=== PATIENT | female | born 1970 | race Two or more races ===

== ENCOUNTER 2024-06-14 17:20 | Emergency (ER) | payer MEDICAID, SELFPAY ==
[2024-06-14 17:49] VITALS: BP 103/72; PULSE 72; RESP 18; TEMP 36.7; O2SAT 100; BMI 20.5
--- NOTE | 2024-06-14 18:35 | XR_ITS ---
Examination: CT maxillofacial, without intravenous contrast. 2-D sagittal reconstructions. 3-D reconstructions. Date and time of exam:June 14, 2024 1917 hrs. Indications: Left-sided facial pain year pain and headache today CTDI: vol (mGy):19.6 DLP: (mGycm):380 Technique: Multiple axial images of maxillofacial region, 3.0 mm slice thickness. 2-D sagittal and coronal reconstructions. 3-D reconstructions. Low dose protocols were performed. One or more of the following dose reduction techniques were used; automated exposure control, adjustment of the mA and/or KV according to patient size, use of iterative reconstruction technique. Findings: Optic globes exhibit symmetry Maxillary antra are clear Symmetrical oropharynx No significant cervical lymphadenopathy The larynx appears normal Thyroid lobes are not enlarged Negative for otitis media, negative for otitis externa No acute mastoiditis Impression: No soft tissue neck mass No pathologic cervical lymphadenopathy Negative for otitis media, negative for otitis externa, negative for mastoiditis.
--- NOTE | 2024-06-14 18:35 | XR_ITS ---
Examination: CT brain head without contrast. 2-D sagittal coronal reconstructions Date and time of exam:June 07 70,024 1917 hrs. Indications: Left-sided headache beginning 2 days ago Comparison: May 21, 2024 CTDI: vol (mGy):44.6 DLP: (mGycm):852 Technique: Multiple CT axial sections of the brain have been obtained, 5 mm slice thickness. Contrast has not been administered. 2-D sagittal, coronal reconstructions have been obtained Low dose protocols were performed. One or more of the following dose reduction techniques were used; automated exposure control, adjustment of the mA and/or KV according to patient size, use of iterative reconstruction technique. Findings: No significant ventricular enlargement. Intra-axial or extra-axial hemorrhage density is not seen. No mass effect or midline shift Basal cisterns are not remarkable. Fourth ventricle is midline. Cranial vault intact. Impression: Negative for acute hemorrhage, mass effect or midline shift
--- NOTE | 2024-06-14 18:43 | EDNOTE_ITS ---
ED Headache RME/HPI General Chief Complaint: Headache Stated Complaint: Headache and left ear pain X 2 days Time Seen by Provider: 06/14/24 17:29 Arrival date/time: 06/14/24 17:20 53F with no significant PMH presents to ED with 2 days of head pressure inside head that is primarily on the L side. Patient also feels like something is moving inside. Patient denies alcohol/psych/drug use. Patient was here several weeks ago with CT head saying sinusitis. Patient states this feels different. Limitations: no limitations Related Data Home Medications ?Medication ?Instructions ?Recorded ?Confirmed amitriptyline 50 mg tablet 50 mg PO QDAY 01/01/22 01/02/22 naproxen 500 mg tablet 500 mg PO BID PRN Pain 01/01/22 01/02/22 ondansetron 4 mg disintegrating 4 mg PO Q6H PRN Nausea And Vomiting 01/01/22 01/02/22 tablet sumatriptan succinate 100 mg tablet 100 mg PO Q2H PRN Migraine Headache 01/01/22 01/02/22 Previous Rx's ?Medication ?Instructions ?Recorded amoxicillin 500 mg-potassium 1 tab PO BID #14 tabs 05/21/24 clavulanate 125 mg tablet (Augmentin) fluticasone propionate 50 1 spray intranasal QDAY PRN 05/21/24 mcg/actuation nasal congestion #16 mL spray,suspension (Flonase Allergy Relief) Allergies Allergy/AdvReac Type Severity Reaction Status Date / Time codeine Allergy Mild Rash Verified 05/21/24 12:48 morphine Allergy Mild Rash Verified 05/21/24 12:48 Review of Systems Review of Systems Systems Reviewed: All systems reviewed, normal except as documented Constitutional Constitutional: Reports system reviewed and no additional complaints, except as documented, Reports as per HPI, Denies fever(s) and Reports headache(s) (pressure) ENT Ears, Nose, Mouth, and Throat: Denies disequilibrium and Reports headache(s) (pressure) Cardiovascular Cardiovascular: Reports system reviewed and no additional complaints, except as documented, Denies chest pain and Denies dyspnea Respiratory Respiratory: Reports system reviewed and no additional complaints, except as documented, Denies cough and Denies dyspnea Gastrointestinal Gastrointestinal: Reports system reviewed and no additional complaints, except as documented, Denies abdominal pain, Denies nausea and Denies vomiting Neurologic Neurologic: Reports system reviewed and no additional complaints, except as documented, Denies confusion, Denies disequilibrium and Reports headache(s) (pressure) Psychiatric Psychiatric: Denies confusion Past Medical History Past Medical History NEUROLOGIC: Positive Neurological Disorders (HEAD ACHE SEVERE); Negative Seizures CARDIAC: Negative Cardiac Disorders, Congestive Heart Failure, Edema, Cellulitis or Varicose Veins RESPIRATORY: Negative Chronic Obstructive Pulmonary Disease (COPD), Tuberculosis or Sleep Apnea GASTROINTESTINAL: Positive Gastrointestinal Disorders and Gall Bladder Disease (LAP); Negative Hepatitis GENITOURINARY: Negative Genitourinary Disorders or Renal Disease REPRODUCTIVE: Positive Previous Pregnancies (X5) MUSCULOSKELETAL: Negative Musculoskeletal Disorders ENDOCRINE: Negative Endocrine Disorders, Diabetes Mellitus Type 1 or Diabetes Mellitus Type 2 HEMATOLOGIC: Negative Blood Disorders PSYCHO/SOCIAL: Positive Depression (TAKES MED) and Anxiety (TAKES MED) OTHER HISTORY: Positive Chicken Pox; Negative Hospitalization, Autoimmune Disease, Shingles, Falls, Blood Transfusions, Blood Transfusion Reaction, Anesthesia Reactions, Chemotherapy, Radiation Therapy, MRSA, Measles, Mumps or Cancer Family History FAMILY HISTORY: Positive Family Psychiatric Problems (FATHER (DEPRESSION,ANXIETY)) and Family Cardiac Disorders (FATHER (AR)); Negative Family Respiratory Disorders, Family Gastrointestinal Problems, Family Cancer, Family Surgery or Family Anesthesia Reaction Surgical History SURGICAL: Positive Tubal Ligation; Negative Pacemaker Social History SMOKING STATUS: Never smoker ED Exam General Limitations: Present no limitations General appearance: Present alert and in no apparent distress Head Head exam: Present atraumatic Eye Eye exam: Present normal appearance, PERRL and EOMI ENT ENT exam: Present normal exam, normal oropharynx and mucous membranes moist Neck Neck exam: Present normal inspection, full ROM and trachea midline Chest Chest inspection: Present normal inspection and symmetric chest wall rise Respiratory Respiratory exam: Present normal lung sounds bilaterally Cardiovascular Cardiovascular exam: Present regular rate, normal rhythm and normal heart sounds Abdominal Exam Abdominal exam: Present soft and normal bowel sounds Extremities Exam Extremities exam: Present normal inspection and full ROM Back Exam Back exam: Present normal inspection and full ROM Neurological Exam Neurological exam: Present alert, oriented X3 and CN II-XII intact Psychiatric Psychiatric exam: Present normal affect and normal mood Skin Skin exam: Present warm, dry, intact and normal color Course Quality Measures none Orders Category Date Time Status CT facial bones wo con Stat Exams 06/14/24 18:[address] head/brain wo con Stat Exams 06/14/24 18:35 Completed CBC Stat Lab 06/14/24 19:33 Completed CMP [Comprehensive Metabolic Panel] Stat Lab 06/14/24 19:33 Completed Drug Screen,Urine Stat Lab 06/14/24 18:53 Completed Syphilis Stat Lab 06/14/24 19:33 Completed Metoclopramide [Reglan] Med 06/14/24 20:41 Discontinued 10 mg PO X1 ONE Naproxen [Naprosyn] Med 06/14/24 20:41 Discontinued 500 mg PO X1 ONE Vital Signs Vital signs: Vital Signs Temperature 98.0 F 06/14/24 17:49 Pulse Rate 72 06/14/24 17:49 Respiratory Rate 18 06/14/24 17:49 Blood Pressure 103/72 06/14/24 17:49 Pulse Oximetry (%) 100 06/14/24 17:49 Oxygen Delivery Method Room Air 06/14/24 17:49 O2 at 100% on RA and WNLs Headache MDM Narrative MDM Narrative:: 53F with no significant PMH presents to ED with 2 days of head pressure inside head that is primarily on the L side. Patient also feels like something is moving inside. Patient denies alcohol/psych/drug use. Patient was here several weeks ago with CT head saying sinusitis. Patient states this feels different. Physical exam reveals normal pupil response and EOM. ENT clear. Patient is afebrile, calm, and alert. CT normal with no more sinusitis as seen on last CT. No leukocytosis. Syphillis neg. Migraine meds improved symptoms. Patient data External records reviewed:: [facility] previous records Clinical information provided by:: patient Social determinants that could affect healthcare access:: none Patient has the following chronic illnesses:: none How is presenting disease/condition affected by chronic disease/condition?: no chronic disease Evaluation data The following diagnostics were reviewed and interpreted by me:: lab results and radiology exam(s) Lab and/or radiology exams considered but not ordered:: ordered Interpretation Summary: above Medications / Prescriptions Medications or Prescriptions considered but not ordered:: not ordered Medication administrations:: Medication Administration History Discontinued Medications Metoclopramide HCl (Metoclopramide 5 Mg Tablet) 10 mg PO X1 ONE Stop: 06/14/24 20:42 Last Admin: 06/14/24 21:02 Dose: 10 mg Documented By: ANÍBAL Naproxen (Naproxen 250 Mg Tablet) 500 mg PO X1 ONE Stop: 06/14/24 20:42 Last Admin: 06/14/24 21:02 Dose: 500 mg Documented By: SF n/a Consultations Consultation(s) initiated? (list below): No Diagnosis Differential diagnosis headache: migraine, tension headache, subarachnoid hemorrhage, headache, meningitis, sinusitis and postconcussion syndrome Most likely diagnosis given after review of the tests above:: SOMMER Admission Indicated Admission indicated?: not indicated Admission Request Was there a request for admission?: No Disposition Plan Disposition Plan: Discharge Discharge Attestation Discharge Attestation: The patient and all family members were given an opportunity to ask questions and understood the discharge instructions. Discharge instructions specifically effects, indications for sooner follow up or return to the emergency department, and the expected course of current diagnosis. Patient condition: Stable Discharge Plan Plan Patient Disposition: HOME (Self Care) Disposition Comment: Stable Prescriptions/Referrals Prescriptions/Med Rec: No Action sumatriptan succinate 100 mg Tablet 100 mg PO Q2H PRN (Reason: Migraine Headache) Rx Instructions: do not exceed 2 doses per 24 hrs amitriptyline 50 mg Tablet 50 mg PO QDAY ondansetron 4 mg Tablet,Disintegrating 4 mg PO Q6H PRN (Reason: Nausea And Vomiting) naproxen 500 mg Tablet 500 mg PO BID PRN (Reason: Pain) amoxicillin-pot clavulanate [Augmentin] 500-125 mg tablet 1 tab PO BID Qty: 14 0RF fluticasone propionate [Flonase Allergy Relief] 50 mcg/actuation spray,suspension 1 spray intranasal QDAY MDD one spray each nostril PRN (Reason: congestion) Qty: 16 0RF Rx Instructions: administer into each nostril twice daily for three days then at night before sleep Referrals: Erica Medellin [Primary Care Provider] - In 1 week Problem List Clinical Impression: Headache Patient/Caregiver Discharge Instructions Education Materials: Self-Care for Headaches Additional Instructions: Please follow-up with PCP within 24-48 hours and return immediately if symptoms worsen. Print Language: Ghanaian Stand Alone Forms: Patient Portal Info Letter DAYNE/SILVIA Supervising Physician DAYNE/SILVIA Supervising Physician: Dr. Greogrio
[2024-06-14 19:31] LABS: Amphetamine/Methamp Scrn,U Negative (Negative); Barbiturate Screen,Urine Negative (Negative); Benzodiazepines Screen,Urine Negative (Negative); Benzoylecgonine Screen, Ur Negative (Negative); Fentanyl Screen,Urine Negative (Negative); Opiate Screen,Urine Negative (Negative); THC Screen,Urine Negative (Negative)
[2024-06-14 19:52] LABS: Basophils % (Auto) 0 % (0-2.5); Eosinophils # (Auto) 0.6 Thou/mm3 (0.0-0.5); Eosinophils % (Auto) 8 % (0-10); Hemoglobin 12.5 g/dL (12.0-16.0); Immature Granulocytes % (Auto) 0 % (0-0); Immature Granulocytes Auto 0.01 Thou/mm3 (0.00-0.00); Lymphocytes # (Auto) 2.6 Thou/mm3 (1.0-4.8); Lymphocytes % (Auto) 35 % (10-50); Mean Corpuscular HGB Conc 33.8 g/dl (31.0-37.0); Mean Corpuscular Hemoglobin 31.5 pg (25.0-35.0); Mean Corpuscular Volume 93 fL (80-100); Monocytes # (Auto) 0.6 Thou/mm3 (0.0-0.8); Monocytes % (Auto) 8 % (0-12); Neutrophils # (Auto) 3.7 Thou/mm3 (1.8-7.7); Neutrophils % (Auto) 49 % (37-80); Nucleated Red Blood Cell % 0 /100 WBC (0); Platelet Count 232 Thou/mm3 (140-440); RDW Standard Deviation 42.5 fL (36.4-46.3); Red Blood Count 3.97 Miln/mm3 (4.00-5.20); White Blood Count 7.5 Thou/mm3 (3.6-11.0)
[2024-06-14 19:59] LABS: Anion Gap 5 (7-16); BUN/Creatinine Ratio 25 Ratio (12-20); Blood Urea Nitrogen 15 mg/dL (9-23); Carbon Dioxide 30.3 mMol/L (20.0-31.0); Chloride 105 mMol/L (98-107); Creatinine (Component) 0.6 mg/dL (0.6-1.3); Estimated Creatinine Clearance 87.7 mL/min (>60); Glucose 94 mg/dL (74-106); Sodium 140 mMol/L (136-145); eGFR > 60 See Note
[2024-06-14 20:00] LABS: Alanine Aminotransferase 13 U/L (10-49); Albumin, Serum 4.6 gm/dL (3.5-5.0); Albumin/Globulin Ratio 1.6 (1.2-2.2); Alkaline Phosphatase 121 U/L (46-116); Aspartate Amino Transferase 16 U/L (0-34); Bilirubin,Total 0.2 mg/dL (0.3-1.2); Calcium 9.8 mg/dL (8.3-10.6); Calcium (Corrected) 9.8 mg/dL (8.5-10.1); Globulin 2.8 gm/dL (2.3-3.5); Osmolality,Calculated 280 (275-295); Total Protein 7.4 gm/dL (5.7-8.2)
[2024-06-14 20:38] LABS: Syphilis Nonreactive (Nonreactive)
[2024-06-14] MEDS: METOCLOPRAMIDE 5 MG TABLET 10 MG PO (21:02)
[2024-06-14] MEDS: NAPROXEN 250 MG TABLET 500 MG PO (21:02)
== END 2024-06-14 23:34 | disposition home or self-care (01) ==
PROVIDERS: Physician Assistant; Emergency Provider Emergency Medicine; PCP Registered Nurse Community Health
DX: R51.9 Headache, unspecified (principal)
CPT/HCPCS: 36415; 70450; 70486; 80053; 80307; 85025; 86780; 99284; A9270

== ENCOUNTER 2025-06-23 09:36 | Emergency (ER) | payer MEDICAID, SELFPAY ==
[2025-06-23 09:43] VITALS: BP 103/72; PULSE 77; RESP 18; TEMP 36.7; O2SAT 100; BMI 17.5
--- NOTE | 2025-06-23 09:52 | XR_ITS ---
Examination: Bilateral hips, AP pelvis, 5 views Technique: AP, lateral views both hips, AP pelvis, 5 views Exam date and time: June 23, 2025, 1010 hours INDICATIONS: Bilateral hip pain 3 days. FINDINGS: Moderate osteopenia. Mild to moderate bilateral hip osteoarthritis No hip or pelvic fracture IMPRESSION: Mild to moderate hip osteoarthritis
--- NOTE | 2025-06-23 09:52 | XR_ITS ---
EXAMINATION: Lumbar spine 3 views TECHNIQUE: AP lateral coned lateral lower lumbar spine 3 views Date and time: June 23, 2025, 10:20 a.m. INDICATIONS: Low back pain 3 days. FINDINGS: Moderate osteopenia No lumbar fracture. No spondylolisthesis. Mild disc narrowing L5-S1 IMPRESSION: Mild disc narrowing L5-S1
[2025-06-23] MEDS: KETOROLAC INJ 30 MG/ML VIAL IM (10:50)
[2025-06-23] MEDS: ACETAMINOPHEN 325 MG TABLET 650 MG PO (10:51)
--- NOTE | 2025-06-23 12:56 | PD.EDBACK ---
ED Back Injury Pain RME/HPI General Chief Complaint: Back Pain/Injury Stated Complaint: Lower back pain X 2 days, worse last night Time Seen by Provider: 06/23/25 09:43 Arrival date/time: 06/23/25 09:36 Limitations: no limitations RME / HPI RME / HPI Narrative: 54-year-old female here for low back pain that radiates to her left and right hip x 1 week. takes Tylenol with very little relief. Afraid to take stronger medication. has gone to her PCP at [facility] and was told likely a spasm. Patient states she feels really stiff but did not fall or injure herself. No loss of bowel or bladder control no history of IV drug use no fever. Related Data Home Medications ?Medication ?Instructions ?Recorded ?Confirmed amitriptyline 50 mg tablet 50 mg PO QDAY 01/01/22 01/02/22 naproxen 500 mg tablet 500 mg PO BID PRN Pain 01/01/22 01/02/22 ondansetron 4 mg disintegrating 4 mg PO Q6H PRN Nausea And Vomiting 01/01/22 01/02/22 tablet sumatriptan succinate 100 mg tablet 100 mg PO Q2H PRN Migraine Headache 01/01/22 01/02/22 Previous Rx's ?Medication ?Instructions ?Recorded amoxicillin 500 mg-potassium 1 tab PO BID #14 tabs 05/21/24 clavulanate 125 mg tablet (Augmentin) fluticasone propionate 50 1 spray intranasal QDAY PRN 05/21/24 mcg/actuation nasal congestion #16 mL spray,suspension (Flonase Allergy Relief) IBU 800 mg tablet (ibuprofen) 800 mg PO Q6H PRN pain #30 tabs 06/23/25 baclofen 5 mg tablet 5 mg PO .qhs #30 tabs 06/23/25 prednisone 20 mg tablet 40 mg PO QDAY 5 days #10 tabs 06/23/25 Allergies Allergy/AdvReac Type Severity Reaction Status Date / Time codeine Allergy Mild Rash Verified 06/23/25 09:39 morphine Allergy Mild Rash Verified 06/23/25 09:39 Review of Systems Review of Systems Systems Reviewed: All systems reviewed, normal except as documented Constitutional Constitutional: Denies fever(s) Musculoskeletal Musculoskeletal: Reports as per HPI ED Exam General Limitations: Present no limitations General appearance: Present alert and in no apparent distress Eye Eye exam: Present normal appearance, PERRL and EOMI Respiratory Respiratory exam: Present normal lung sounds bilaterally Cardiovascular Cardiovascular exam: Present regular rate, normal rhythm and normal heart sounds Extremities Exam Extremities exam: Present normal inspection and full ROM Expanded Lower Extremity Exam Hip/Pelvis exam: Present tenderness (Bilateral hip tenderness left worse than right) Back Exam Back exam: Present full ROM and tenderness (Lumbar paraspinous muscle TTP) Psychiatric Psychiatric exam: Present normal affect and normal mood Skin Skin exam: Present warm, dry, intact and normal color Course Quality Measures none Orders Category Date Time Status XR hip BI w pelvis 2V Stat Exams 06/23/25 09:52 Completed XR lumbar spine 2-3V Stat Exams 06/23/25 09:52 Completed Acetaminophen Tab [Tylenol Tab] Med 06/23/25 09:52 Discontinued 650 mg PO X1 ONE Ketorolac Inj [Toradol Inj] Med 06/23/25 09:52 Discontinued 30 mg IM X1 ONE dexAMETHasone INJ [Decadron Inj] Med 06/23/25 09:52 Discontinued 10 mg PO X1 ONE Vital Signs Vital signs: Vital Signs Temperature 98.1 F 06/23/25 09:43 Pulse Rate 77 06/23/25 09:43 Respiratory Rate 18 06/23/25 09:43 Blood Pressure 103/72 06/23/25 09:43 Pulse Oximetry (%) 100 06/23/25 09:43 Oxygen Delivery Method Room Air 06/23/25 09:43 Back Pain / Injury Patient data External records reviewed:: [facility] previous records Clinical information provided by:: patient Social determinants that could affect healthcare access:: other (specify) (No access to PCP in the weekends) Patient has the following chronic illnesses:: Back pain How is presenting disease/condition affected by chronic disease/condition?: exacerbated by Evaluation data The following diagnostics were reviewed and interpreted by me:: radiology exam(s) Lab and/or radiology exams considered but not ordered:: MRI of lumbar spine considered however unlikely to change the course of treatment and no signs of cauda equina at this time Interpretation Summary: X-ray of lumbar shows osteoarthritis X-ray of bilateral hips also considered Medications / Prescriptions Medications or Prescriptions considered but not ordered:: Narcotics were considered however patient declined Medication administrations:: Medication Administration History Discontinued Medications Acetaminophen (Acetaminophen 325 Mg Tablet) 650 mg PO X1 ONE Stop: 06/23/25 09:53 Last Admin: 06/23/25 10:51 Dose: 650 mg Documented By: LT Dexamethasone Sodium Phosphate (Dexamethasone Sod Phos Inj 10 Mg/Ml Vial) 10 mg PO X1 ONE Stop: 06/23/25 09:53 Last Admin: 06/23/25 10:51 Dose: 10 mg Documented By: LT Comments: PO ADM Ketorolac Tromethamine (Ketorolac Inj 30 Mg/Ml Vial) 30 mg IM X1 ONE Stop: 06/23/25 09:53 Last Admin: 06/23/25 10:50 Dose: 30 mg Documented By: LT Patient improved with the following medications above Consultations Consultation(s) initiated? (list below): No Diagnosis Differential diagnosis back pain/injury: lumbar radiculopathy, sciatica, strain of lumbar region, renal colic and other (osteoarthritis) Most likely diagnosis given after review of the tests above:: Lumbar OA Bilateral hip OA Admission Indicated Admission indicated?: not indicated Admission Request Was there a request for admission?: No Disposition Plan Disposition Plan: Discharge Discharge Attestation Discharge Attestation: The patient and all family members were given an opportunity to ask questions and understood the discharge instructions. Discharge instructions specifically effects, indications for sooner follow up or return to the emergency department, and the expected course of current diagnosis. Patient condition: Stable Discharge Plan Plan Patient Disposition: HOME (Self Care) Discharge Disposition comment: Follow-up with PCP in 2 to 3 days Prescriptions/Referrals Prescriptions/Med Rec: New ibuprofen [IBU] 800 mg tablet 800 mg PO Q6H PRN (Reason: pain) Qty: 30 0RF prednisone 20 mg tablet 40 mg PO QDAY 5 Days Qty: 10 0RF Taper: Prednisone Taper 20 mg DAILY for 2 Days and 0 Hour 10 mg DAILY for 2 Days and 0 Hour 5 mg DAILY for 7 Days and 0 Hour baclofen 5 mg tablet 5 mg PO .qhs Qty: 30 0RF No Action sumatriptan succinate 100 mg Tablet 100 mg PO Q2H PRN (Reason: Migraine Headache) Rx Instructions: do not exceed 2 doses per 24 hrs amitriptyline 50 mg Tablet 50 mg PO QDAY ondansetron 4 mg Tablet,Disintegrating 4 mg PO Q6H PRN (Reason: Nausea And Vomiting) naproxen 500 mg Tablet 500 mg PO BID PRN (Reason: Pain) amoxicillin-pot clavulanate [Augmentin] 500-125 mg tablet 1 tab PO BID Qty: 14 0RF fluticasone propionate [Flonase Allergy Relief] 50 mcg/actuation spray,suspension 1 spray intranasal QDAY MDD one spray each nostril PRN (Reason: congestion) Qty: 16 0RF Rx Instructions: administer into each nostril twice daily for three days then at night before sleep Problem List Clinical Impression: Lumbar radiculopathy, Degenerative joint disease (DJD) of lumbar spine, Osteoarthritis of both hips Patient/Caregiver Discharge Instructions Education Materials: ED Osteoarthritis Print Language: Welsh Stand Alone Forms: Mimi Award Info., Patient Portal Info Letter PA/ASSOCIATE PRINCIPAL Supervising Physician PA/ASSOCIATE PRINCIPAL Supervising Physician: Dr. miranda
== END 2025-06-23 13:10 | disposition home or self-care (01) ==
LOC: SERX 13:29
PROVIDERS: Emergency Provider Emergency Medicine
DX: M47.27 Other spondylosis with radiculopathy, lumbosacral region (principal); M16.0 Bilateral primary osteoarthritis of hip
CPT/HCPCS: 72100; 73521; 96372; 99283; J1100; J1885; A9270